=== PATIENT | female | born 1955 | race Caucasian/White ===

== ENCOUNTER 2018-02-14 15:51 | Emergency (ER) | payer OTHER ==
[~2018-02-14] VITALS: Ht 165.1 cm; Wt 111.4 kg
[~2018-02-14 15:51] MED LIST: ASPI81TA87 PO; GABA-531 PO; GLIP10TA3 PO; HYDR25TA PO; INSLAN SQ; LISI-662 PO; METF500T7 PO; SIMV-261 PO
[2018-02-14 16:18] LABS: GLUCOSE,POINT OF CARE 97 MG/DL (70-110)
[2018-02-14] MEDS ORDERED: HydrOXYzine PAMOATE 50 MG CAPSULE PO ONE (17:45)
[2018-02-14 18:37] VITALS: BP 141/92
== END 2018-02-14 18:53 | disposition home or self-care (01) ==
LOC: EMS 15:52
DX: F41.9 Anxiety disorder, unspecified (principal); R20.0 Anesthesia of skin; E11.9 Type 2 diabetes mellitus without complications; E78.00 Pure hypercholesterolemia, unspecified; I10 Essential (primary) hypertension; Z88.5 Allergy status to narcotic agent; Z79.4 Long term (current) use of insulin; Z79.82 Long term (current) use of aspirin
CPT/HCPCS: 82962; 99284

== ENCOUNTER 2022-04-05 21:07 | Emergency (ER) | payer MEDICARE, OTHER ==
[~2022-04-05] VITALS: Ht 157.5 cm; Wt 96.8 kg
[~2022-04-05 21:07] MED LIST changes: +GABA-1181 PO; -GABA-531 PO; +HYDR-4870 PO; -HYDR25TA PO; -LISI-662 PO; +LISI-894 PO; +METF-81 PO; -METF500T7 PO
[2022-04-05 21:23] VITALS: BP 121/81
[2022-04-05] MEDS ORDERED: CEPH-558 PO (23:25)
== END 2022-04-06 00:06 | disposition home or self-care (01) ==
LOC: EMS 21:08
DX: S09.90XA Unspecified injury of head, initial encounter (principal); E11.621 Type 2 diabetes mellitus with foot ulcer; L25.9 Unspecified contact dermatitis, unspecified cause; I10 Essential (primary) hypertension; Z88.5 Allergy status to narcotic agent; W01.0XXA Fall on same level from slipping, tripping and stumbling without subsequent striking against object, initial encounter; W57.XXXA Bitten or stung by nonvenomous insect and other nonvenomous arthropods, initial encounter; Y93.89 Activity, other specified; Y92.89 Other specified places as the place of occurrence of the external cause; Y99.8 Other external cause status
CPT/HCPCS: 70450; 82962; 99284